=== PATIENT | female | born 1990 | race Caucasian/White ===

== ENCOUNTER 2018-03-20 10:57 | Emergency (ER) | payer OTHER ==
--- NOTE | 2018-03-20 11:16 | ERPHSYRPT ---
- History of Present Illness Time Seen by Provider: 03/20/18 11:07 Source: patient Exam Limitations: no limitations Patient Subjective Stated Complaint: pt states that she thinks she was bitten on the right eye lid by a bug komal 36 hrs ago states that she was wanting to get a steroid shot to reduce the swelling Triage Nursing Assessment: swelling noted to pt right eye lid-pt pink warm and dry-no drainage noted Physician History: 28-year-old white female arrives with complaint of swelling of her right eyelid symptoms for 36 hours. Patient states she was bitten by an insect. She has no other complaints. She states she has been taking Benadryl every 6 hours. Past medical history patient denies. Patient denies chance of last period February 20 Timing/Duration: hour(s) (36 hours) Severity: mild Modifying Factors: Improves With: medication (patient taking Benadryl) Associated Symptoms: No nausea, No vomiting, No abdominal pain, No shortness of breath, No heartburn, No diaphoresis, No cough, No chills, No chest pain, No fever, No headaches, No loss of appetite, No malaise, No rash, No syncope, No seizure, No weakness Allergies/Adverse Reactions: No Known Drug Allergies Allergy (Unverified 03/20/18 11:06) Home Medications: No Reportable Medications [No Reported Medications] 03/20/18 [History] Hx Tetanus, Diphtheria Vaccination/Date Given: Yes Hx Influenza Vaccination/Date Given: Yes Hx Pneumococcal Vaccination/Date Given: No Immunizations Up to Date: Yes - Review of Systems Constitutional: No Fever, No Chills Eyes: Other (swelling right eyelid), No Discharge, No Eye Pain, No Eye Redness, No Itchy, No Photophobia, No Tearing, No Vision Changes, No Double Vision, No Foreign Body Sensation Ears, Nose, & Throat: No Symptoms Respiratory: No Cough, No Dyspnea Cardiac: No Chest Pain, No Edema, No Syncope Abdominal/Gastrointestinal: No Abdominal Pain, No Nausea, No Vomiting, No Diarrhea Genitourinary Symptoms: No Dysuria Musculoskeletal: No Back Pain, No Neck Pain Skin: Other (slight amount of edema right upper eyelid) Neurological: No Dizziness, No Focal Weakness, No Sensory Changes Psychological: No Symptoms Endocrine: No Symptoms All Other Systems: Reviewed and Negative - Past Medical History Pertinent Past Medical History: No - Past Surgical History Past Surgical History: Yes Gastrointestinal: Appendectomy - Social History Smoking Status: Never smoker Exposure to second hand smoke: No Drug Use: none Patient Lives Alone: No - Female History Hx Last Menstrual Period: last month Hx Now: No - Nursing Vital Signs Nursing Vital Signs: Initial Vital Signs Temperature 99.0 F 03/20/18 11:02 Pulse Rate 66 03/20/18 11:02 Respiratory Rate 18 03/20/18 11:02 Blood Pressure 145/89 03/20/18 11:02 O2 Sat by Pulse Oximetry 100 03/20/18 11:02 Pain Scale Pain Intensity 0 - Physical Exam General Appearance: no apparent distress Eye Exam: PERRL/EOMI, eyes nml inspection, other (small amount of edema right upper eyelid, conjunctiva are pink bilaterally noninflamed) Ears, Nose, Throat Exam: normal ENT inspection, TMs normal, pharynx normal, moist mucous membranes Neck Exam: normal inspection, non-tender, supple, full range of motion Respiratory Exam: normal breath sounds, lungs clear, No respiratory distress Cardiovascular Exam: regular rate/rhythm, normal heart sounds, normal peripheral pulses Gastrointestinal/Abdomen Exam: soft, normal bowel sounds, No tenderness, No mass Back Exam: normal inspection, normal range of motion, No CVA tenderness, No vertebral tenderness Extremity Exam: normal inspection, normal range of motion, pelvis stable Neurologic Exam: alert, oriented x 3, cooperative, normal mood/affect, nml cerebellar function, nml station & gait, sensation nml, No motor deficits Skin Exam: other (slight amount of edema right upper eyelid) Lymphatic Exam: No adenopathy SpO2 Interpretation: normal (100%) SpO2: 100 Oxygen Delivery: Room Air - Course Nursing assessment & vital signs reviewed: Yes - Progress Progress: improved Progress Note: 03/20/18 11:14 28-year-old white female arrives with complaint of edema of her right upper eyelid for 36 hours. She states she was bitten by an insect, possibly a gnat Patient has been taking Benadryl but she states she continues to have swelling at the right upper eyelid. She has no foreign bodies she does not have conjunctivitis on exam. Will go ahead and give patient tapering dose of prednisone. She is to continue Benadryl 50 mg orally every 6 hours. And use cold packs to the area. 03/20/18 11:18 Patient's visual acuity is checked by the patient's nurse she has 20/50 vision bilaterally. - Departure Time of Disposition: 11:15 Departure Disposition: Home Clinical Impression: insect bite right upper eyelid Condition: Fair Critical Care Time: No Referrals: Tisha Hitchcock, CARDIOGRAPHER [Primary Care Provider] - Additional Instructions: Continue Benadryl 50 mg orally every 6 hours as needed for 2-3 days. Cold packs to area 24-48 hours tapering dose of prednisone as directed. Follow-up with your family doctor if symptoms are worse, no better in 48 hours, or persist longer than one week return for acute distress or for severe symptoms. . .
[2018-03-20 11:32] VITALS: BP 122/62; PULSE 78; O2SAT 99
== END 2018-03-20 11:32 | disposition home or self-care (01) ==
LOC: ED 10:57
DX: S00.261A Insect bite (nonvenomous) of right eyelid and periocular area, initial encounter (principal); W57.XXXA Bitten or stung by nonvenomous insect and other nonvenomous arthropods, initial encounter
CPT/HCPCS: 99283